=== PATIENT | male | born 1990 ===

== ENCOUNTER 2017-07-17 21:24 | Emergency (ER) | payer OTHER ==
[2017-07-17 21:50] VITALS: BP 135/86; PULSE 72; TEMP 99.8; O2SAT 99
--- NOTE | 2017-07-17 23:16 | C.PDOC ---
History Of Present Illness 26 year old male presents to the ED c/o nasal bridge pain and right infraorbital pain since Sunday. Patient reports that while at work he was using crowbar which accidentally slipped his hand and hit him on the right side of his nose and infraorbital area. Patient too Tylenol for pain. Patient fell dazed but denies LOC, headache, blurry vision, weakness, numbness. Time Seen by Provider: 07/17/17 21:55 Chief Complaint (Nursing): ENT Problem History Per: Patient History/Exam Limitations: None Onset/Duration Of Symptoms: Days (2) Current Symptoms Are (Timing): Still Present Symptoms Have Been: Continuous Severity: Mild Anticoagulant/Antiplatlet Use?: No Recent Aspirin Use: No Past Medical History Reviewed: Historical Data, Nursing Documentation, Vital Signs Vital Signs: Last Vital Signs Temp 99.8 F H 07/17/17 21:45 Pulse 72 07/17/17 21:45 Resp 18 07/17/17 21:45 BP 135/86 07/17/17 21:45 Pulse Ox 99 07/18/17 00:02 - Medical History PMH: No Chronic Diseases Surgical History: No Surg Hx Family History: States: Unknown Family Hx - Social History Hx Alcohol Use: No Hx Substance Use: No - Immunization History Hx Tetanus Toxoid Vaccination: No Hx Influenza Vaccination: No Hx Pneumococcal Vaccination: No Review Of Systems Constitutional: Negative for: Fever, Chills Eyes: Negative for: Vision Change ENT: Positive for: Nose Pain. Negative for: Nose Discharge, Nose Congestion, Other (epistaxis) Skin: Negative for: Rash Neurological: Negative for: Weakness, Numbness, Headache, Dizziness Physical Exam - Physical Exam Appears: Non-toxic, No Acute Distress Skin: Normal Color, Warm, Dry Head: Atraumatic, Normacephalic, Tenderness (right side infraorbital) Eye(s): bilateral: Normal Inspection, PERRL, EOMI Ear(s): Bilateral: Normal Nose: No Discharge, No Epistaxis, Tenderness (nasal bridge and right nasal area) , Other (minimal ecchymosis to right infraorbital area) Oral Mucosa: Moist Throat: Normal, No Erythema, No Exudate Neck: Normal ROM, No Midline Cervical Tenderness, Supple Extremity: Normal ROM, No Tenderness, No Swelling Neurological/Psych: Oriented x3, Normal Motor, Normal Sensation Gait: Steady ED Course And Treatment O2 Sat by Pulse Oximetry: 99 (On RA) Pulse Ox Interpretation: Normal - CT Scan/US Facial CT Other Rad Studies (CT/US): Read By Radiologist, Radiology Report Reviewed CT/US Interpretation: IMPRESSION: 1. Nasal fracture. 2. Sinus disease. 3. Incidental/non-acute findings are described above. Progress Note: Plan: - Motrin 600 mg PO. - CT facial. CT results d/w pt and understand to follwo up with PMD/ ENT. Pt understand return precautions Reevaluation Time: 00:16 Reassessment Condition: Improved Disposition - Disposition Referrals: Non [facility] Provider, [Primary Care Provider] - Disposition: HOME/ ROUTINE Disposition Time: 00:16 Condition: STABLE Additional Instructions: Motrin for pain Follwo up in clinic or with ENT- call for appointment Return to ER if difficulty to breathe through nose, active bleeding, moderate face swelling or worse Instructions: Nose Fracture (DC) Forms: [employer] (Bel[place]ian) Print Language: CHINESE - Clinical Impression Clinical Impression: Nasal bone fracture - PA / ENV[employer]MENT[employer]IST / Resident Statement MD/DO has reviewed & agrees with the documentation as recorded. - Scribe Statement The provider has reviewed the documentation as recorded by the Scribe Lucian Cosby All medical record entries made by the Scribe were at my direction and personally dictated by me. I have reviewed the chart and agree that the record accurately reflects my personal performance of the history, physical exam, medical decision making, and the department course for this patient. I have also personally directed, reviewed, and agree with the discharge instructions and disposition.
--- NOTE | 2017-07-17 23:59 | CT ---
EXAM: CT Maxillofacial Without Intravenous Contrast CLINICAL HISTORY: 26 years old, male; Pain; Eye pain and face pain and nose pain; Right; Additional info: Pain, right periorbital, nasal TECHNIQUE: Axial computed tomography images of the face without intravenous contrast. All CT scans at this facility use one or more dose reduction techniques, viz.: automated exposure control; ma/kV adjustment per patient size (including targeted exams where dose is matched to indication; i.e. head); or iterative reconstruction technique. Coronal and sagittal reformatted images were created and reviewed. COMPARISON: No relevant prior studies available. FINDINGS: Bones/joints: Partial fusion cervical spine with degenerative changes. Nondisplaced fracture right nasal bone. Soft tissues: Nasal soft tissue swelling. Orbits: Unremarkable as visualized. Sinuses: Scattered mild mucosal thickening. Tiny air-fluid level within LEFT maxillary sinus. IMPRESSION: 1. Nasal fracture. 2. Sinus disease. 3. Incidental/non-acute findings are described above.
[2017-07-18 00:27] VITALS: RESP 20
--- NOTE | 2017-07-18 08:14 | RAD ---
Facial bones four views History: Right periorbital soft tissue swelling. Comparison: None available. Findings: Lucency through the right nasal bone concerning for a fracture. Overlying soft tissue swelling. Visualized paranasal sinuses appear grossly preserved. Visualized orbits appear grossly preserved. Hypoplastic and/or partially opacified mastoid air cells. Clinical correlation. On the frontal view, within the right lateral temporal cranium, there is a curvilinear lucency which may represent prominent suture. Clinical correlation. Correlation with CT scan may be helpful if clinically indicated. Impression: Lucency through the right nasal bone concerning for a fracture. Overlying soft tissue swelling. Hypoplastic and/or partially opacified mastoid air cells. Clinical correlation. On the frontal view, within the right lateral temporal cranium, there is a curvilinear lucency which may represent prominent suture. Clinical correlation. Correlation with CT scan may be helpful if clinically indicated.
== END 2017-07-18 00:26 | disposition home or self-care (01) ==
LOC: SUPCPDRO 21:24 → C.ER 21:24
DX: S02.2XXA Fracture of nasal bones, initial encounter for closed fracture (principal); W22.8XXA Striking against or struck by other objects, initial encounter; Y99.0 Civilian activity done for income or pay